=== PATIENT | female | born 1980 | race Caucasian/White ===

== ENCOUNTER 2021-12-25 06:59 | Day surgery (SDC) | payer OTHER ==
[2021-12-23 15:35] VITALS: BMI 28.8
[~2021-12-25 06:59] MED LIST: ACETAMINOPHEN TAB 500 MG TAB PO PRN; HEPARIN SODIUM,PORCINE/PF 5,000 UNIT/0.5 ML SYRINGE SQ PRN; Pre Op ABX Message 1 EACH MISC MISCELLANE ONE
[2021-12-25] MEDS ORDERED: HYDROmorphone 0.5 MG/0.5 ML SYRINGE IVP PRN (07:30)
[2021-12-25] MEDS ORDERED: ONDANSETRON 4 MG/2 ML VIAL IVP ONE (07:30)
[2021-12-25] MEDS ORDERED: LACTATED RINGERS 1,000 ML IV SCH (07:30)
[2021-12-25] MEDS ORDERED: DEXAMETHASONE SOD PHOSPHATE 4 MG/ML 1 ML VIAL IV ONE (07:30)
[2021-12-25] MEDS ORDERED: SCOPOLAMINE 1 MG/72 HR PATCH TRANSDERM ONE (07:39)
[2021-12-25] MEDS ORDERED: MIDAZOLAM 2 MG/2 ML VIAL IVP ONE (08:07)
[2021-12-25] MEDS ORDERED: fentaNYL (PF) 50 MCG/ML 2 ML AMP IVP ONE (08:07)
[2021-12-25] MEDS ORDERED: ACETAMINOPHEN IV (For NPO) 1,000 MG/100 ML VIAL IVPB ONE (08:15)
--- NOTE | 2021-12-25 08:28 | P.ANPRN ---
Procedure Note - Anesthesia - Nerve Block Performed Bilateral Transversus Abdominis Single Time Out Performed: Yes Date of Procedure: 12/25/21 Procedure Start Time: 08:06 Procedure Stop Time: 08:11 Location of Patient: PreOp Indication: Acute Post-Operative Pain, Analgesia, Requested by Surgeon Sedation Type: Sedate with meaningful contact maintained Preparation: Sterile Prep Position: Supine Needle Types: Pajunk Needle Gauge: 20, 21 Ultrasound used to visualize needle placement: Yes Ultrasound used to observe medication spread: Yes Injectate: 0.5% Ropivacaine (see comment for volume) (30ml total) Blood Aspirated: No Pain Paresthesia on Injection Noted: No Resistance on Injection: Normal Image Stored and Saved: Yes Events: Uneventful and Well Tolerated
[2021-12-25] MEDS ORDERED: GLYCOPYRROLATE 0.2 MG/ML 2 ML VIAL ONE (08:30)
[2021-12-25] MEDS ORDERED: KETOROLAC 30 MG/ML 1 ML VIAL ONE (08:30)
[2021-12-25] MEDS ORDERED: fentaNYL (PF) 50 MCG/ML 2 ML AMP ONE (08:30)
[2021-12-25] MEDS ORDERED: ceFAZolin 1,000 MG VIAL ONE (08:30)
[2021-12-25] MEDS ORDERED: LIDOCAINE 2% INJ 20 MG/ML (2 ML VIAL) ONE (08:30)
[2021-12-25] MEDS ORDERED: ROCURONIUM 10 MG/ML (5 ML VIAL) IV ONE (08:30)
[2021-12-25] MEDS ORDERED: MIDAZOLAM 2 MG/2 ML VIAL ONE (08:30)
[2021-12-25] MEDS ORDERED: ROPIVACAINE 5 MG/ML 30 ML VIAL ONE (08:30)
[2021-12-25] MEDS ORDERED: DEXAMETHASONE SOD PHOSPHATE 4 MG/ML 1 ML VIAL ONE (08:30)
[2021-12-25] MEDS ORDERED: NEOSTIGMINE 1 MG/ML 10 ML VIAL ONE (08:30)
[2021-12-25] MEDS ORDERED: PROPOFOL 10 MG/ML 20 ML VIAL IV ONE (08:30)
--- NOTE | 2021-12-25 08:32 | P.GSHP ---
History of Present Illness H&P Date: 12/25/21 Chief Complaint: Adhesions, pelvic pain This a 38-year-old female who presents today for laparoscopic lysis of adhesions. Patient has a history of adhesions. She states her pain is worse in the pelvis is worsening the right and left side. Her previous lysis of adhesions approximately 10 years ago. Past Medical History Past Medical History: GERD/Reflux, Hypertension Additional Past Medical History / Comment(s): DIVERTICULITIS. Hx hypertension resolved now. History of Any Multi-Drug Resistant Organisms: None Reported Past Surgical History: Bowel Resection, Cholecystectomy, Hysterectomy, Tubal Ligation Additional Past Surgical History / Comment(s): Left ovary removed. Past Anesthesia/Blood Transfusion Reactions: No Reported Reaction Past Psychological History: Depression Additional Psychological History / Comment(s): No problems with depression now. Smoking Status: Never smoker Past Alcohol Use History: Rare Past Drug Use History: None Reported - Past Family History Father History Unknown: Yes Family Medical History: Unable to Obtain Mother Family Medical History: No Reported History Medications and Allergies Home Medications Medication Instructions Recorded Confirmed Type Buprenorphine/Naloxone 8Mg/2Mg 0.5 each PO BID 12/23/21 12/23/21 History [Suboxone 8-2Mg Film] Allergies Allergy/AdvReac Type Severity Reaction Status Date / Time No Known Allergies Allergy Verified 12/25/21 07:36 Surgical - Exam Vital Signs Temp Pulse Resp BP Pulse Ox 98.4 F 61 16 159/89 95 12/25/21 07:34 12/25/21 07:34 12/25/21 07:34 12/25/21 07:34 12/25/21 07:34 - General well developed, well nourished, no distress - Eyes PERRL - ENT normal pinna - Neck no masses - Abdomen Abdomen: soft, non tender Assessment and Plan Assessment: History of adhesions. We'll perform laparoscopic lysis of adhesions
[2021-12-25] MEDS ORDERED: BUPIVACAIN-EPI 0.25%-1:200,000 30 ML VIAL SQ ONE (09:02)
--- NOTE | 2021-12-25 09:27 | P.OP ---
Date of Procedure: 12/25/21 Preoperative Diagnosis: Adhesions Abdominal pain Postoperative Diagnosis: Adhesions Small incisional hernia Procedure(s) Performed: Laparoscopic lysis of adhesions Anesthesia: CHRISTIAN Surgeon: Bernardino Tapia Estimated Blood Loss (ml): 5 Pathology: none sent Condition: stable Disposition: PACU Description of Procedure: The patient's placed on the operative table in supine position. She received general endotracheal tube anesthesia. Her abdomen was prepped and draped usual fashion. The skin was incised in the supraumbilical position. Using a Veress needle a positive drop test performed and then the abdomen was insufflated. After adequate insufflation the 5 mm trocar was placed into the peritoneal cavity. The laparoscope was then placed into the pleural cavity. There were adhesions noted in the midline and right side of the abdomen. Another 5 mm trochars placed in the left lateral position. Using the Harmonic scissors used to lysed. There was a small incisional hernia located near the midline. The adhesions extended towards the right lower quadrant. These were entirely lysed. The omentum was freed. There were no significant adhesions. The trochars withdrawn. The abdomen was desufflated. The skin was closed interrupted 3-0 Monocryl suture. Dermabond was applied. Patient top she will was sent to recovery in stable condition.
[2021-12-25 09:30] VITALS: TEMP 96.8
[2021-12-25 09:45] VITALS: RESP 16
[2021-12-25] MEDS ORDERED: HYDROmorphone 0.5 MG/0.5 ML SYRINGE IVP ONE (10:00)
[2021-12-25] MEDS ORDERED: LACTATED RINGERS 1,000 ML IV ONE (10:25)
[2021-12-25 11:07] VITALS: BP 108/72; PULSE 62
== END 2021-12-25 11:14 | disposition home or self-care (01) ==
LOC: OR 06:59
PROVIDERS: ATTEND Surgery
DX: K66.0 Peritoneal adhesions (postprocedural) (postinfection) (principal); K43.2 Incisional hernia without obstruction or gangrene; K21.9 Gastro-esophageal reflux disease without esophagitis; Z87.19 Personal history of other diseases of the digestive system; Z90.49 Acquired absence of other specified parts of digestive tract; Z90.710 Acquired absence of both cervix and uterus; Z98.51 Tubal ligation status; Z90.721 Acquired absence of ovaries, unilateral; Z79.891 Long term (current) use of opiate analgesic
CPT/HCPCS: 64488; 44180; J2250; J1100; J2710; J2405; J0690; J3010; J1885; J2795; J0131; J2704; J1170; J1644; J2001